=== PATIENT | female | born 1985 | race Caucasian/White ===

== ENCOUNTER 2020-09-27 19:30 | Emergency (ER) | payer OTHER, SELFPAY ==
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
[2020-09-27 19:38] VITALS: BP 134/74; PULSE 83; RESP 18; TEMP 36.7; O2SAT 98
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
[2020-09-27] MEDS: IBUPROFEN 400 MG TABLET 800 MG PO (20:09)
== END 2020-09-27 20:31 | disposition home or self-care (01) ==
PROVIDERS: Emergency Provider Nurse Practitioner Family; PCP Family Medicine
DX: S16.1XXA Strain of muscle, fascia and tendon at neck level, initial encounter (principal); V43.52XA Car driver injured in collision with other type car in traffic accident, initial encounter; S39.012A Strain of muscle, fascia and tendon of lower back, initial encounter
CPT/HCPCS: 72050; 72100; 99213; A9270; G0463

== ENCOUNTER 2021-12-30 18:33 | Emergency (ER) | payer OTHER, SELFPAY ==
[2021-12-30 18:40] VITALS: BP 138/74; PULSE 78; RESP 20; TEMP 37.2; O2SAT 100
--- NOTE | 2021-12-30 19:06 | ED.GENADULT ---
HPI - General Adult General Chief complaint: Nausea/Vomiting/Diarrhea Stated complaint: Fever/N/V Time Seen by Provider: 12/30/21 18:59 Source: patient and RN notes reviewed Mode of arrival: ambulatory Limitations: no limitations History of Present Illness HPI narrative: Patient presents today complaining of 4-day history of low-grade fever up to 100.5, sore throat, cough, nausea, vomiting, diarrhea. States cough has been improving. Last vomiting episode was 1 hour prior to arrival. She currently rates her pain 5/10 and has been taking Tylenol and ibuprofen that does help improve her sore throat and fever. She has been vaccinated against COVID-19. MD complaint: Nausea, vomiting, diarrhea Related Data Home Medications Medication Instructions Recorded Confirmed fluoxetine 20 mg PO DAILY 09/27/20 09/27/20 hydroxyzine HCl 25 mg PO QID PRN 09/27/20 09/27/20 lamotrigine 200 mg PO DAILY 09/27/20 09/27/20 trazodone 100 mg PO HS PRN 09/27/20 09/27/20 Allergies Allergy/AdvReac Type Severity Reaction Status Date / Time No Known Allergies Allergy Verified 09/27/20 19:51 Review of Systems Review of Systems: CONSTITUTIONAL: Denies body aches, chills, or sweats.+ Fever EYES: Denies visual changes, redness, or discharge. ENT: Denies rhinorrhea, congestion, otalgia.+ Sore throat CARDIOVASCULAR: Denies chest pain, palpitations, or edema. RESPIRATORY: +Cough GASTROINTESTINAL: Denies abdominal pain. + Nausea, vomiting, diarrhea GENITOURINARY: Denies dysuria or hematuria. SKIN: Denies rash, itching, or wounds. MUSCULOSKELETAL: Denies back pain, joint pain, or myalgia. NEUROLOGIC: Denies headache, numbness, tingling, or weakness. PSYCH: Denies depression or anxiety. PMFSH Comments At time of signature, I have reviewed and agree with nursing past medical, surgical, social and family history unless otherwise noted. Please see nursing chart for further information. There is no relevant family history pertinent to the presenting complaint Exam Narrative: GENERAL: Ill-appearing, well-nourished, and in no acute distress.+ Diaphoretic HEAD: Normocephalic, atraumatic. EYES: EOMI. No redness or drainage. Conjunctivae normal. ENT: Mucous membranes pink and moist. Nares clear. No rhinorrhea. TMs normal bilaterally. Throat normal. Uvula midline. NECK: Normal AROM. Supple. No lymphadenopathy. CHEST: No respiratory distress. Clear to auscultation. HEART: Regular rate and rhythm. No murmur appreciated. Normal peripheral pulses. ABDOMEN: Soft, nontender, nondistended, normal active bowel sounds. EXTREMITIES: Normal range of motion. No edema. SKIN: Warm, dry, no rash. Capillary refill normal. Normal skin turgor. NEURO: No focal deficits. Alert and oriented x3. Gait steady. PSYCH: Normal affect. No signs of depression or anxiety. Course Course Level of Care: Express Care Visit Vital Signs Vital signs: Vital Signs Temperature 98.9 F 12/30/21 18:40 Pulse Rate 78 12/30/21 18:40 Respiratory Rate 20 12/30/21 18:40 Blood Pressure 138/74 12/30/21 18:40 Pulse Oximetry 100 12/30/21 18:40 Temperature 98.9 F 12/30/21 18:40 Pulse Rate 78 12/30/21 18:40 Respiratory Rate 20 12/30/21 18:40 Blood Pressure 138/74 12/30/21 18:40 Pulse Oximetry 100 12/30/21 18:40 Reviewed. Pt has been instructed to follow up with her PCP regarding her elevated blood pressure today. Medical Decision Making Differential Diagnosis Differential Diagnosis: COVID-19, gastroenteritis, viral syndrome Vital Signs Vital Signs: Vital Signs Temperature 98.9 F 12/30/21 18:40 Pulse Rate 78 12/30/21 18:40 Respiratory Rate 20 12/30/21 18:40 Blood Pressure 138/74 12/30/21 18:40 Pulse Oximetry 100 12/30/21 18:40 Temperature 98.9 F 12/30/21 18:40 Pulse Rate 78 12/30/21 18:40 Respiratory Rate 20 12/30/21 18:40 Blood Pressure 138/74 12/30/21 18:40 Pulse Oximetry 100 12/30/21 18:40 Critical Care
[2021-12-30] MEDS: ONDANSETRON HCL ODT 4 MG TABLET 8 MG SUBLINGUAL (19:19)
== END 2021-12-30 20:00 | disposition home or self-care (01) ==
PROVIDERS: Emergency Provider Nurse Practitioner; PCP Family Medicine
DX: B34.9 Viral infection, unspecified (principal); Z20.822 Contact with and (suspected) exposure to COVID-19
CPT/HCPCS: 87426; 99213; A9270; C9803; G0463